=== PATIENT | female | born 2000 | race Hispanic/Latino ===

== ENCOUNTER 2025-06-22 17:41 | Emergency (ER) | payer SELFPAY ==
[~2025-06-22] VITALS: Ht 160 cm; Wt 85.3 kg
--- NOTE | 2025-06-22 18:25 | ERN ---
ED Note History of Present Illness Stated Complaint: FEVER Chief Complaint: Flu Symptoms Time Seen by MD: 17:42 Time Seen by Midlevel: 17:43 Dictation: 25-year-old female presents to the emergency department due to reported having chills, body aches, runny nose, sore throat, nonproductive cough and a headache that began yesterday. She states that she believes that she felt like she had a fever but was not able to confirm it. There is no report of having had contact with anybody with similar symptoms. Upon initial evaluation, the patient presents in no acute respiratory distress. Allergies: Coded Allergies: No Known Drug Allergies (Unverified Allergy, Unknown, 06/22/25) Emergency Care CLEAN ROOM OPERATOR: None Past Medical History Past Medical History: No Pertinent History Surgical History: None PSYCH History: no pertinent psych hx History: Not Applicable RN Note Reviewed/Agreed w/PFSH: Yes Review of System Dictation Constitutional: Body aches, chills, fever ENT: Runny nose, sore throat Respiratory: Nonproductive cough Neuro: Headache Initial Vital Sign VS Vital Signs Date Time Temp Pulse Resp B/P (MAP) Pulse Ox O2 Delivery O2 Flow Rate FiO2 06/22/25 17:42 100.9 111 18 155/77 98 06/22/25 19:21 Room Air* 0 21 Physical Exam Dictation General: awake, alert, NAD Head/Face: Normocephalic, atraumatic Eyes: PERRL, EOMI ENT: Oral mucosa moist, erythematous pharynx, bilateral nasal congestion Neck: Trachea midline, supple Cardiovascular: RRR, no edema Respiratory: Symmetrical, non-labored Abdomen: Soft, non-tender, non-distended, no guarding. Skin: Warm, dry, good turgor, no rash MS/Extremity: Pulses equal, no cyanosis, neurovascular intact, FROM Neuro: COAx4, GCS 15, steady gait, Psych: Normal behavior, mood, and affect normal Results (Laboratory/Radiology) Laboratory/Radiology Laboratory Tests Test 06/22/25 19:20 Influenza Type A Antigen Positive For Type A Influenza Type B Antigen Negative For Type B SARS-CoV-2 Antigen (Rapid) PRESUMPTIVE NEGATIVE Group A Streptococcus Rapid positive (NEGATIVE) *A Labs Reviewed?: Yes ED Course ED Course Orders Procedure Category Date Status Time Influenza Type A & B, LAB 06/22/25 Complete Rapid 18:21 Covid19 (Sars Antigen LAB 06/22/25 Complete Rapid) 18:21 Rapid (Group A Strep) LAB 06/22/25 Complete 18:21 Ceftriaxone 1g Vial PHA 06/22/25 In Process (Rocephine 1g Inj) 20:30 Acetaminophen 500mg PHA 06/22/25 In Process Tab (Tylenol 500mg T 20:30 Current Medications Medications (Trade) Dose Ordered Sig/Sandy Route PRN Reason Start Time Stop Time Status Last Admin Dose Admin Acetaminophen (TYLenol 500MG TAB) 1,000 mg ONCE ONCE PO 06/22/25 20:30 06/22/25 20:31 Ceftriaxone Sodium (ROCEphine 1G INJ) 1 gm ONCE ONCE IM 06/22/25 20:30 06/22/25 20:31 Vital Signs Date Time Temp Pulse Resp B/P (MAP) Pulse Ox O2 Delivery O2 Flow Rate FiO2 06/22/25 19:21 99.9 102 18 142/71 98 Room Air* 0 21 06/22/25 17:42 100.9 111 18 155/77 98 Medical Decision Making MDM MDM: Differential diagnosis: Influenza, streptococcal pharyngitis, viral illness. Rationale: Tests considered and ordered secondary to shared decision making include: Previous outside records reviewed: Old ER visits. Risk of complication and/or morbidity or mortality of patient management: None Medications-Per medication reconciliation Need for hospitalization: Patient does not meet criteria for hospitalization. Need for emergency major/minor surgery: No There are no social concerns with this patient. Prescription drug management Prescriptions will include symptomatic care Patient's prior external medical records from other ER visits were reviewed by me as indicated. Prior testing and results from previous visits were reviewed. Prior tests were taken into account with medical decision making and resource utilization, independent historian/historians were used to obtain complete medical history. I independently interpreted the test that were performed, results were reviewed by me and considered findings on radiology if ordered. Medical management and examination interpretation discussions were had by me with other qualified healthcare professionals as indicated for the patient's care. DX & DISP Disposition: Discharge Departure Impression: Primary Impression: Acute streptococcal pharyngitis Additional Impression: Influenza A Condition: Stable Scripts Ondansetron (Ondansetron Odt) 4 Mg Tab.rapdis 4 MG PO Q6HPRN PRN for nausea, #16 TAB 0 Refills Prov: MOSES HOGAN 06/22/25 Oseltamivir Phosphate (Tamiflu) 75 Mg Cap 1 CAP PO BID for 5 Days, #10 CAP 0 Refills Prov: MOSES HOGAN 06/22/25 Amoxicillin/Potassium Clav (Amox Tr-K Clv 875-125 mg Tab) 875 Mg-125 Mg Tablet 1 EACH PO BID for 7 Days, #10 TAB 0 Refills Prov: MOSES HOGAN 06/22/25 Time of Disposition: 20:24 MOSES HOGAN Jun 22, 2025 18:25
[2025-06-22 19:21] VITALS: BP 142/71; PULSE 102; RESP 18; TEMP 99.8; O2SAT 98
[2025-06-22 19:54] LABS: RAPID GROUP A STREP positive (NEGATIVE)
[2025-06-22 19:55] LABS: INFLUENZA TYPE B Negative For Type B (NEGATIVE)
[2025-06-22 19:56] LABS: COVID19 (SARS ANTIGEN RAPID) PRESUMPTIVE NEGATIVE (NEGATIVE)
[2025-06-22 20:03] LABS: INFLUENZA TYPE A Positive For Type A (NEGATIVE)
[2025-06-22] MEDS ORDERED: OSEL75 PO (20:24)
[2025-06-22] MEDS ORDERED: AMOX1TAB16 PO (20:24)
[2025-06-22] MEDS ORDERED: ONDA-243 PO (20:24)
== END 2025-06-22 20:45 | disposition home or self-care (01) ==
LOC: EDH 17:41
DX: J02.0 Streptococcal pharyngitis (principal); J10.1 Influenza due to other identified influenza virus with other respiratory manifestations; Z20.822 Contact with and (suspected) exposure to COVID-19
CPT/HCPCS: 99283; 87426; 87880; 87804 ×2; 96372; J0696